=== PATIENT | female | born 1985 | race African-American/Black ===

== ENCOUNTER 2020-07-11 00:49 | Emergency (ER) | payer OTHER ==
[~2020-07-11] VITALS: Ht 172.7 cm; Wt 72.6 kg
--- NOTE | 2020-07-11 01:05 | NUR ---
ED Nurse Note: Recieved pt BIBA from home, here with c/o SOB, pt has hx of asthma and states home inhalers not working, pt is awake, alert and oriented x 4, denies chest pain or any pain, mild sob noted with bilat inspiratory and expiratory wheezes heard, pt denies fevers or any other s/s, states was Covid tested last week and negative, pt immediately gowned and placed on cardiac monitoring, 02 sat=98%, will resume care as ordered and closely monitor, pt isolated and covid precautions until results recieved.
[2020-07-11 01:08] VITALS: BP 151/97
[2020-07-11] MEDS ORDERED: Albuterol 90mcg Inhaler 8gm INH ONE (01:15)
[2020-07-11] MEDS ORDERED: Solu-MEDROL 125mg Inj IVP ONE (01:15)
--- NOTE | 2020-07-11 01:16 | Emergency Room Report ---
History of Present Illness General Chief Complaint: Dyspnea/Respdistress Source: Patient Present Illness HPI 34-year-old female with a history of seizure. She is taking a steroid inhaler and albuterol. She presents with chief complaint of asthma. Onset for 1 day. She ran out of her steroid inhaler. She took 4 breathing treatment is not helping. Worse with exertion. Worse with inspiration. Better with rest. No fever chills. Has cough but nonproductive nature. No runny nose or congestion. Had recent Covid testing about 2 weeks ago was negative. Allergies: Uncoded Allergies: HAY FEVER (Allergy, Unknown, 07/11/20) COVID-19 Screening Contact w/high risk pt: No Experienced COVID-19 symptoms?: No COVID-19 Testing performed [employer]ESS[employer]ISED [employer]ER FILLER: No Patient History Past Medical History: see triage record, old chart reviewed, asthma Past Surgical History: none Pertinent Family History: none Social History: Denies: smoking Now: No Immunizations: other Reviewed Nursing Documentation: PMH: Agreed; PSxH: Agreed Nursing Documentation-PMH Hx Asthma: Yes Review of Systems Eye: Denies: eye pain, blurred vision ENT: Denies: ear pain, nose congestion, throat swelling Respiratory: Reports: cough, shortness of breath, wheezing Cardiovascular: Denies: chest pain, palpitations Gastrointestinal: Denies: abdominal pain, diarrhea, nausea, vomiting Musculoskeletal: Denies: back pain, joint pain Skin: Denies: rash Neurological: Denies: headache, numbness Endocrine: Denies: increased thirst, increased urine Hematologic/Lymphatic: Denies: easy bruising All Other Systems: negative except mentioned in HPI Physical Exam Vital Signs Date Time Temp Pulse Resp B/P (MAP) Pulse Ox O2 Delivery O2 Flow Rate FiO2 07/11/20 00:45 98.4 105 18 155/107 (123) 98 Room Air Vitals with high blood pressure Sp02 EP Interpretation: reviewed, normal General Appearance: well appearing, no apparent distress, alert Head: normocephalic, atraumatic Eyes: bilateral eye PERRL, bilateral eye EOMI ENT: hearing grossly normal, normal pharynx Neck: full range of motion, supple, no meningismus Respiratory: chest non-tender, respiratory distress - mild, decreased breath sounds, accessory muscle use, wheezing Cardiovascular #1: regular rate, rhythm, no murmur Gastrointestinal: normal bowel sounds, non tender, no mass, no organomegaly, no bruit, non-distended Musculoskeletal: back normal, normal range of motion, gait/station normal Psychiatric: mood/affect normal Procedures Critical Care Time Critical Care Time Critical care is mandated in this patient who presented with severe asthma exacerbation. Patient require my urgent intervention to attenuate the risks of respiratory collapse which may lead to cardiovascular collapse and . Critical care time is 35 minutes excluding any reportable procedure. Critical care time included evaluation, multiple reevaluation, looking at old charts, interpreting laboratory and diagnostic data, discussing case with patient and family and consultants, and charting. Medical Decision Making Diagnostic Impression: Primary Impression: Asthma exacerbation Qualified Codes: J45.901 - Unspecified asthma with (acute) exacerbation ER Course She presents with asthma exacerbation. She require multiple treatments for her to improve. She felt much better now. And wants to go home. Will discharge home. No evidence of pneumonia, ACS, PE to name a few. Rhythm Strip Diag. Results EP Interpretation: yes Rate: 100 Rhythm: NSR, no PVC's, no ectopy Chest X-Ray Diagnostic Results Chest X-Ray Diagnostic Results : Chest X-Ray Ordered: Yes # of Views/Limited/Complete: 1 View Indication: Shortness of Breath EP Interpretation: Yes Interpretation: no consolidation, no effusion, no pneumothorax, no acute cardiopulmonary disease Impression: No acute disease Electronically Signed by: Yoav Alexis MD Last Vital Signs Date Time Temp Pulse Resp B/P (MAP) Pulse Ox O2 Delivery O2 Flow Rate FiO2 07/11/20 01:08 98.4 112 18 151/97 98 Room Air Status: improved Disposition: HOME, SELF-CARE Condition: Improved Scripts Fluticasone Propion/Salmeterol (Wixela 250-50 Inhub) 1 Each Blst.w.dev 1 EACH IH DAILY, #1 UNIT Prov: Yaov Alexis MD 07/11/20 Prednisone* (PREDNISONE*) 20 Mg Tablet 40 MG ORAL DAILY, #8 TAB Prov: Yoav Alexis MD 07/11/20 Albuterol Sulfate* (Albuterol Sulfate Hfa*) 8.5 Gm Hfa.aer.ad 2 PUFF INH Q4H, #1 INH Prov: Yoav Alexis MD 07/11/20 Additional Instructions: Follow-up with your doctor in 2-3 days. Return if symptoms worsen. Yoav Alexis MD Jul 11, 2020 01:16
--- NOTE | 2020-07-11 01:20 | NUR ---
ED Nurse Note: RT at bedside, pt reports symptoms lessened
[2020-07-11] MEDS ORDERED: Albuterol ud Inhalation HHN ONE ×4 (01:30→04:00)
[2020-07-11] MEDS ORDERED: Ipratropium 0.02% Inh Soln 2.5ml UD HHN ONE (02:00)
[2020-07-11 02:44] LABS: EOSINOPHILS % (AUTO) 10.5 % (0.0-3.0); HEMATOCRIT 43.8 % (37.0-47.0); HEMOGLOBIN 14.3 G/DL (12.0-16.0); LYMPHOCYTES % (AUTO) 16.8 % (20.0-45.0); MEAN CORPUSCULAR VOLUME 84 FL (80-99); MONOCYTES % (AUTO) 7.9 % (1.0-10.0); NEUTROPHILS % (AUTO) 63.8 % (45.0-75.0); PLATELET COUNT 184 K/UL (150-450); RED BLOOD COUNT 5.22 M/UL (4.20-5.40); RED CELL DISTRIBUTION WIDTH 13.1 % (11.6-14.8); WHITE BLOOD COUNT 9.9 K/UL (4.8-10.8)
[2020-07-11 02:55] LABS: APPEARANCE,URINE CLOUDY; BILIRUBIN, URINE NEGATIVE (NEGATIVE); COLOR,URINE PALE YELLOW; GLUCOSE, URINE (UA) NEGATIVE (NEGATIVE); KETONES,URINE NEGATIVE (NEGATIVE); LEUKOCYTE ESTERASE ,URINE NEGATIVE (NEGATIVE); NITRITE,URINE NEGATIVE (NEGATIVE); PH,URINE 8 (4.5-8.0); UROBILINOGEN,URINE NORMAL MG/DL (0.0-1.0)
[2020-07-11 02:58] LABS: PROTEIN,URINE 1+ (NEGATIVE)
[2020-07-11 03:00] VITALS: BP 138/84
[2020-07-11 03:06] LABS: BLOOD UREA NITROGEN 10 mg/dL (7-18); CALCIUM 8.5 MG/DL (8.5-10.1); CARBON DIOXIDE 26 MMOL/L (21-32); CHLORIDE 103 MMOL/L (98-107); POTASSIUM 4.4 MMOL/L (3.5-5.1); SODIUM 138 MMOL/L (136-145)
--- NOTE | 2020-07-11 03:30 | NUR ---
ED Nurse Note: Pt with multiple breathing tx, reporting improvement, tolerating well
--- NOTE | 2020-07-11 03:37 | Diagnostic Imaging Report ---
EXAM: XR Chest, 1 View CLINICAL HISTORY: SOB TECHNIQUE: Frontal view of the chest. COMPARISON: No relevant prior studies available. FINDINGS: No acute radiographic findings.
[2020-07-11] MEDS ORDERED: PREDNISONE20 MG ORAL (05:01)
[2020-07-11] MEDS ORDERED: WIXELA 250-501 EACH IH (05:01)
[2020-07-11] MEDS ORDERED: ALBUTEROL SULF8.5 G1 INH (05:01)
[2020-07-11 05:05] VITALS: BP 138/85
--- NOTE | 2020-07-11 05:05 | NUR ---
ER DISCHARGE NOTE: Patient is cleared to be discharged per ERMD, pt is aox4, on room air, with stable vital signs. pt was given dc and prescription instructions, pt was able to verbalize understanding, pt id band and iv site removed without complications. pt is able to ambulate with steady gait. pt took all belongings.
== END 2020-07-11 05:05 | disposition home or self-care (01) ==
LOC: EDBD 00:49 → EMR 01:15
DX: J45.901 Unspecified asthma with (acute) exacerbation (principal)
CPT/HCPCS: 36415; 71045; 80048; 81001; 81025; 85025; 87086; 94640; 96374; J2930; U0002; Z7502; 99291